=== PATIENT | male | born 1970 | race Two or more races ===

== ENCOUNTER 2016-09-12 20:35 | Inpatient (IN) | payer MEDICARE, OTHER ==
[2016-09-12 21:01] VITALS: BP 137/79
[2016-09-12 21:35] LABS: HEMATOCRIT 41.9 % (39.0-49.0); HEMOGLOBIN 14.4 gm/dL (13.2-17.3); MEAN CELL VOLUME 95.3 fl (80-99); MEAN CORPUSCULAR HEMOGLOBIN 32.8 pg (26.0-30.0); MEAN CORPUSCULAR HGB CONC 34.4 pg (28.0-36.0); MEAN PLATELET VOLUME 8.1 fl; PLATELET COUNT 205 Th/cmm (150-400); RED CELL DISTRIBUTION WIDTH 12.4 % (11.5-20.0); WHITE BLOOD COUNT 8.1 Th/cmm (4.8-10.8)
[2016-09-12 21:52] LABS: ALB/GLOB RATIO 1.2 (1.0-1.8); ALKALINE PHOSPHATASE 42 U/L (34-104); ANION GAP 5.1 (7.0-16.0); BILIRUBIN,TOTAL 0.4 mg/dL (0.3-1.0); BUN - UREA NITROGEN 6 mg/dL (7-25); BUN/CREATININE RATIO 7.5; CALCIUM SERUM 9.2 mg/dL (8.6-10.3); CARBON DIOXIDE 27.1 mEq/L (21.0-31.0); CHLORIDE 106 mEq/L (98-107); CREATININE - SERUM 0.8 mg/dL (0.7-1.3); GLUCOSE 86 mg/dL (70-105); POTASSIUM SERUM 4.2 mEq/L (3.5-5.1); SGOT 16 U/L (13-39); SGPT/ALT 18 U/L (7-52); SODIUM SERUM 134 mEq/L (136-145); TROP I < 0.01 ng/mL (0.01-0.05)
[2016-09-12 21:54] LABS: BNP 32.4 pg/mL (5.0-100.0)
[2016-09-12 21:58] LABS: BAND NEUTROPHILE 2 % (0-10); EOSINOPHIL 1 % (0-5); NEUTROPHILS 40 % (40-80); PLATELET ESTIMATE ADEQUATE (NORMAL); PLATELET MORPHOLOGY NORMAL (NORMAL); TOTAL CELLS COUNTED 100
[2016-09-13 07:05] LABS: % BASOPHILS 0.1 % (0.0-2.0); % EOSINOPHILS 2.5 % (0.0-5.0); % LYMPHOCYTES 38.4 % (20.0-50.0); HEMATOCRIT 44.8 % (39.0-49.0); HEMOGLOBIN 15.3 gm/dL (13.2-17.3); MEAN CELL VOLUME 95.7 fl (80-99); MEAN CORPUSCULAR HEMOGLOBIN 32.8 pg (26.0-30.0); MEAN CORPUSCULAR HGB CONC 34.3 pg (28.0-36.0); MEAN PLATELET VOLUME 8.4 fl; NEUTROPHILE ABSOLUTE 3.3 Th/cmm (1.8-8.0); PLATELET COUNT 203 Th/cmm (150-400); RED BLOOD COUNT 4.68 Mil/cmm (4.30-5.70); RED CELL DISTRIBUTION WIDTH 12.4 % (11.5-20.0)
[2016-09-13 07:30] LABS: ALB/GLOB RATIO 1.3 (1.0-1.8); ALKALINE PHOSPHATASE 42 U/L (34-104); ANION GAP 6.2 (7.0-16.0); BILIRUBIN,TOTAL 0.6 mg/dL (0.3-1.0); BUN - UREA NITROGEN 6 mg/dL (7-25); BUN/CREATININE RATIO 6.7; CALCIUM SERUM 9.4 mg/dL (8.6-10.3); CARBON DIOXIDE 30.4 mEq/L (21.0-31.0); CHLORIDE 104 mEq/L (98-107); CREATININE - SERUM 0.9 mg/dL (0.7-1.3); GLUCOSE 74 mg/dL (70-105); POTASSIUM SERUM 4.6 mEq/L (3.5-5.1); SGOT 17 U/L (13-39); SGPT/ALT 18 U/L (7-52); SODIUM SERUM 136 mEq/L (136-145)
--- NOTE | 2016-09-13 10:17 | General Progress Note ---
Subjective - Review of Systems Service Date: 09/13/16 Subjective: I am fine Objective - Results Result Diagrams: 09/13/16 06:26 09/13/16 06:26 Recent Labs: Laboratory Last Values WBC 7.0 Th/cmm (4.8-10.8) 09/13/16 06:26 RBC 4.68 Mil/cmm (4.30-5.70) 09/13/16 06:26 Hgb 15.3 gm/dL (13.2-17.3) 09/13/16 06:26 Hct 44.8 % (39.0-49.0) 09/13/16 06: MCV 95.7 fl (80-99) 09/13/16 06:26 MCH 32.8 pg (26.0-30.0) H 09/13/16 06:26 MCHC Differential 34.3 pg (28.0-36.0) 09/13/16 06: RDW 12.4 % (11.5-20.0) 09/13/16 06:26 Plt Count 203 Th/cmm (150-400) 09/13/16 06:26 MPV 8.4 fl 09/13/16 06: Neutrophils % 47.0 % (40.0-80.0) 09/13/16 06: Band Neutrophils % 2 % (0-10) 09/12/16 21: Lymphocytes % 38.4 % (20.0-50.0) 09/13/16 06: Monocytes % 12.0 % (2.0-10.0) H 09/13/16 06: Eosinophils % 2.5 % (0.0-5.0) 09/13/16 06: Basophils % 0.1 % (0.0-2.0) 09/13/16 06: Neutrophils (Manual) 40 % (40-80) 09/12/16: Lymphocytes 48 % (20-50) 09/12/16: Monocytes 9 % (2-10) 09/12/16: Eosinophils 1 % (0-5) 09/12/16: Platelet Estimate ADEQUATE (NORMAL) 09/12/16: Platelet Morphology NORMAL (NORMAL) 09/12/16 21: RBC Morph Micro Appear NORMAL (NORMAL) 09/12/16 21:27 Sodium 136 mEq/L (136-145) 09/13/16 06:26 Potassium 4.6 mEq/L (3.5-5.1) 09/13/16 06:26 Chloride 104 mEq/L (98-107) 09/13/16 06:26 Carbon Dioxide 30.4 mEq/L (21.0-31.0) 09/13/16 06:26 Anion Gap 6.2 (7.0-16.0) L 09/13/16 06:26 BUN 6 mg/dL (7-25) L 09/13/16 06:26 Creatinine 0.9 mg/dL (0.7-1.3) 09/13/16 06:26 Est GFR ( Amer) > 60.0 ml/min (>90) 09/13/16 06:26 Est GFR (Non-Af Amer) > 60.0 ml/min 09/13/16 06:26 BUN/Creatinine Ratio 6.7 09/13/16 06:26 Glucose 74 mg/dL (70-105) 09/13/16 06:26 Calcium 9.4 mg/dL (8.6-10.3) 09/13/16 06:26 Total Bilirubin 0.6 mg/dL (0.3-1.0) 09/13/16 06:26 AST 17 U/L (13-39) 09/13/16 06:26 ALT 18 U/L (7-52) 09/13/16 06:26 Alkaline Phosphatase 42 U/L (34-104) 09/13/16 06:26 Troponin I < 0.01 ng/mL (0.01-0.05) L 09/13/16 08:00 B-Natriuretic Peptide 32.4 pg/mL (5.0-100.0) 09/12/16 21:27 Total Protein 6.9 gm/dL (6.0-8.3) 09/13/16 06:26 Albumin 3.9 gm/dL (4.2-5.5) L 09/13/16 06:26 Globulin 3.0 gm/dL 09/13/16 06:26 Albumin/Globulin Ratio 1.3 (1.0-1.8) 09/13/16 06:26 - Physical Exam Vitals and I&O: Vital Signs Temp 98.1 F 09/13/16 08:00 Pulse 68 09/13/16 08:00 Resp 18 09/13/16 08:00 BP 128/81 09/13/16 08:00 Pulse Ox 99 09/13/16 08:00 Intake & Output 09/12/16 09/13/16 09/13/16 18:59 06:59 18:59 Intake Total 350 Balance 350 Weight (lbs) 86.183 kg Intake: Oral 350 Other: # Voids 1 Active Medications: Current Medications Acetaminophen (Tylenol) 650 mg PO Q6H PRN PRN Reason: Pain or Fever >101 Stop: 11/11/16 21:19 Miscellaneous (Trifluoperazine Hcl [Trifluoperazine Hcl]) 10 mg PO HS [facility] Stop: 11/12/16 20:59 Nitroglycerin (Nitrostat) 0.4 mg SL Q5MIN PRN PRN Reason: Chest Pain Stop: 11/11/16 21:21 Ondansetron HCl (Zofran) 4 mg IV Q6H PRN PRN Reason: Nausea / Vomiting Stop: 11/11/16 21:19 Trazodone HCl (Desyrel) 50 mg PO HS [facility] PRN Reason: Protocol Stop: 11/12/16 20:59 Trihexyphenidyl HCl (Artane) 2 mg PO BID [facility] Stop: 11/12/16 08:59 Last Admin: 09/13/16 09:02 Dose: 2 mg General: Alert, Cooperative, No acute distress HEENT: Atraumatic Neck: Supple Cardiovascular: Regular rate Lungs: Clear to auscultation, Normal air movement Abdomen: Bowel sounds, Soft Extremities: Other (No edema) Neurological: Normal gait Skin: Other (Warm and dry) Psych/Mental Status: Mental status NL Assessment/Plan - Assessment Assessment: Patient is awake, alert, calm in no acute distress. Dx: Chest pain, DM, CAD, S/ P IA, S/P CAGB - Plan Plan: Troponins are normal, labs are WNL, patient pain free. Patient will be discharge.
--- NOTE | 2016-09-13 11:59 | History & Physical ---
CHIEF COMPLAINT: Chest pain. HISTORY OF PRESENT ILLNESS: This is a case of a 46-year-old male who went to ER [facility] complaining of chest pain, palpitation and shortness of breath. The patient referred that all symptoms started while he was walking. During hospitalization in ER, he received aspirin and nitro and pain improved. The patient was transferred to this hospital to continue treatment. PAST MEDICAL HISTORY: The patient has past medical history of diabetes mellitus, coronary artery disease status post [place]. PAST SURGICAL HISTORY: The patient has past surgical history ____ CABG. SOCIAL HISTORY: The patient smokes daily 15-20 cigarettes daily. The patient is a permanent resident of a group home. FAMILY HISTORY: Noncontributory. MEDICATIONS: Reviewed. REVIEW OF SYSTEMS: LUNGS: The patient referred that he had shortness of breath. HEART: The patient referred that he had chest pain. ABDOMEN: Unremarkable. EXTREMITIES: Unremarkable. NEUROLOGICAL: Unremarkable. PHYSICAL EXAMINATION: GENERAL: Does reveal a fairly nourished and developed man, awake, alert, in no acute distress. The patient denies any chest pain at this moment. HEENT: Head is normocephalic and atraumatic. Eyes: Pupils reactive to light. Nose: No evidence of nasal obstruction. Ears: No evidence of any discharge. Mouth: Fairly ____. LUNGS: Bilateral air entry. No wheezing, no crackles. HEART: Regular rhythm. ABDOMEN: Soft, nontender, bowel sound is present. EXTREMITIES: No edema. NEUROLOGICAL: The patient is awake, alert, in no acute distress. Nerves 2-12 grossly intact. IMPRESSION: 1. Chest pain. 2. Diabetes mellitus. 3. Coronary artery disease. PLAN: 1. The patient will be admitted in the telemetry unit for observation. 2. Continue on home medications. 3. Aspirin daily. 4. Nitro sublingual p.r.n. 5. Troponin, CBC, CMP at a.m. [facility]# [id number]
[2016-09-13] MEDS ORDERED: TRIFLUOPERAZINE HCL 10 MG PO SCH (21:00)
--- NOTE | 2016-09-14 20:12 | Discharge Summary ---
CHIEF COMPLAINT: Chest pain. HISTORY OF PRESENT ILLNESS: This is the case of a 46-year-old male who was sent from [facility] Emergency Room due to complaint of chest pain and palpitations and shortness of breath. During the evaluation in [facility] ER, the patient received nitro and aspirin. He was transferred to this hospital to continue treatment. HOSPITAL COURSE AND TREATMENT: Then, this patient was admitted in the telemetry unit. He was continued with home medication. He was put on cardiac diet. He was continued with long-term with home medications. He receive aspirin and nitro. Labs were done. Troponin always were normal. CBC and CMP were normal. The day after admission, the patient was awake and alert, in no acute distress with no chest pain and labs were normal; reason why it was considered the patient could be discharged home to continue treatment with primary care physician. DISPOSITION: The patient is sent back home to continue treatment. DIAGNOSES: 1. Chest pain. 2. Diabetes mellitus. 3. Coronary artery disease. [facility]# [id number]
== END 2016-09-13 14:30 | DRG 303 ==
LOC: TELE 20:35
PROVIDERS: ADMIT General Practice; ATTEND General Practice
DX: I25.10 Atherosclerotic heart disease of native coronary artery without angina pectoris (principal); E11.9 Type 2 diabetes mellitus without complications; I25.2 Old myocardial infarction; F17.210 Nicotine dependence, cigarettes, uncomplicated; Z95.1 Presence of aortocoronary bypass graft
CPT/HCPCS: 36415-UA; 80053-TC; 83880-TC; 84484-TC; 85007-TC; 85025-TC; 85027-TC